=== PATIENT | male | born 1990 | race Two or more races ===

== ENCOUNTER 2019-06-24 18:39 | Emergency (ER) | payer SELFPAY ==
[~2019-06-24] VITALS: Ht 175.3 cm; Wt 72.8 kg
[2019-06-24] MEDS ORDERED: MAALOX/HYOSCYAMINE/LIDOCAINE 45 ML BTL PO ONE (20:30)
[2019-06-24] MEDS ORDERED: FAMOTIDINE 20 MG TABLET PO ONE (20:30)
[2019-06-24] MEDS ORDERED: ONDANSETRON ODT 4 MG PO ONE (20:30)
[2019-06-24] MEDS ORDERED: PLEASE ENTER ALLERGIES MC SCH (20:30)
[2019-06-24 20:41] LABS: BASOPHILS # (AUTO) 0.03 x10^3/uL (0-0.1); BASOPHILS % (AUTO) 0 % (0-1); EOSINOPHILS # (AUTO) 0.01 x10^3/uL (0-0.4); EOSINOPHILS % (AUTO) 0 % (1-7); LYMPHOCYTES # (AUTO) 1.12 x10^3/uL (1-3.4); LYMPHOCYTES % (AUTO) 13 % (22-44); MD NO; MEAN CORPUSCULAR HEMOGLOBIN 30.7 pg (27.5-34.5); MEAN CORPUSCULAR VOLUME 90.2 fL (81-97); MEAN PLATELET VOLUME 7.7 fL (7.4-10.4); MONOCYTES # (AUTO) 0.35 x10^3/uL (0.2-0.8); MONOCYTES % (AUTO) 4 % (2-9); NEUTROPHILS # (AUTO) 7.43 x10^3/uL (1.8-6.8); NEUTROPHILS % (AUTO) 83 % (42-75); PLATELET COUNT 252 x10^3/uL (130-400); RED BLOOD COUNT 5.38 x10^6/uL (4.38-5.82); RED CELL DISTRIBUTION WIDTH 12.4 % (9.4-14.8)
[2019-06-24 20:55] LABS: ALANINE AMINOTRANSFERASE 34 U/L (12-78); ALBUMIN 4.1 g/dL (3.4-5.0); ANION GAP 3 mmol/L (5-15); CALCIUM 9.1 mg/dL (8.5-10.1); CHLORIDE 108 mmol/L (98-107); CREATININE 0.95 mg/dL (0.7-1.3)
[2019-06-24 20:58] LABS: ALKALINE PHOSPHATASE 53 U/L (45-117); BILIRUBIN,TOTAL 0.8 mg/dL (0.2-1.0); TOTAL PROTEIN 7.7 g/dL (6.4-8.2)
--- NOTE | 2019-06-24 21:11 | NUR ---
PLT A&OX4, RESP EVEN & UNLABORED, SPEECH CLEAR, SKIN WNL. C/O EPIGASTRIC AREA PAIN, STARTED THIS MORNING, VOMITED X4. TOOK OMEPRAZOLE AND ML-SELTZER AT 1400 TODAY. LAST BM: TODAY LAST ORAL: MILK THIS MORNING.
[2019-06-24] MEDS ORDERED: ONDANSETRON ODT 4 MG ONE (21:19)
[2019-06-24] MEDS ORDERED: FAMOTIDINE 20 MG TABLET ONE (21:19)
[2019-06-24] MEDS ORDERED: MAALOX/HYOSCYAMINE/LIDOCAINE 45 ML BTL ONE (21:20)
--- NOTE | 2019-06-24 21:22 | NUR ---
PT STATES HE WAS SEEN AT [facility] TODAY AND RECEIVED MORPHINE.
--- NOTE | 2019-06-24 21:24 | NUR ---
PEPCID, ZOFRAN AND GI COCKTAIL GIVEN PER EMAR
[2019-06-24 21:27] VITALS: BP 120/73
--- NOTE | 2019-06-24 22:13 | NUR ---
PT REPORT TO HENRIK KOEHLER. PT CARE TRANSFERRED.
== END 2019-06-24 23:46 | disposition home or self-care (01) ==
LOC: ED 19:44
DX: K29.00 Acute gastritis without bleeding (principal)
CPT/HCPCS: 36415; 80053; 85025; 93005; 99284; Q0162